=== PATIENT | male | born 1975 ===

== ENCOUNTER 2020-04-30 12:06 | Outpatient (REF) | payer OTHER, SELFPAY | END 2020-04-30 12:07 | disposition home or self-care (01) | LOC: HO.LAB 12:06 | PROVIDERS: Visit Provider Internal Medicine | DX: Z20.828 Contact with and (suspected) exposure to other viral communicable diseases (principal) | CPT/HCPCS: U0003 ==

== ENCOUNTER 2022-07-17 10:52 | Emergency (ER) | payer OTHER, SELFPAY ==
--- NOTE | ~2022-07-17 | XR_ITS ---
EXAMINATION: XR KNEE, LEFT CLINICAL INFORMATION: Left knee pain and swelling. COMPARISON: 11/01/2019 left knee radiographs. TECHNIQUE: Four views of the left knee. FINDINGS: Mild to moderate tricompartmental degenerative joint changes are seen most pronounced in the medial femoral-tibial and patellofemoral compartments. There is no acute fracture or dislocation. No significant joint effusion. Mild prepatellar soft tissue swelling. XR/XR knee LT 4V IMPRESSION: 1. Mild to moderate tricompartmental degenerative joint changes most consistent with osteoarthritis without significant change. 2. Mild prepatellar soft tissue swelling. Correlate with physical exam.
[2022-07-17 11:03] VITALS: BP 142/85; PULSE 65; RESP 20; TEMP 36.4; O2SAT 98; BMI 37.6
--- NOTE | 2022-07-17 12:36 | ED_ITS ---
HPI - Extremity Problem General Chief complaint: Extremity Problem Stated complaint: L knee pain Time Seen by Provider: 07/17/22 11:43 Source: patient Mode of arrival: ambulatory History of Present Illness HPI Narrative: 47-year-old male with no significant past medical history presenting to the ED complaining of acute on chronic left knee pain and swelling. Reports knee issues since prior surgery for meniscus about 6 years ago. Denies known injury, trauma, fall. Denies fever/chills MD Complaint: extremity pain and joint swelling Onset (ago): year(s) Related Data Previous Rx's Medication Instructions Recorded meloxicam 15 mg tablet 15 mg PO DAILY #30 tabs 06/04/20 lisinopril 20 mg tablet 20 mg PO DAILY #30 tabs 10/16/21 glipizide 5 mg tablet 5 mg PO QAM 30 days #30 tabs 05/21/22 pioglitazone 15 mg tablet (Actos) 15 mg PO DAILY 90 days #90 tabs 05/25/22 acetaminophen 500 mg tablet 500 mg PO Q6H PRN fever or pain 07/17/22 (Tylenol Extra Strength) #14 tabs naproxen 500 mg tablet 500 mg PO BID PRN pain 10 days #20 07/17/22 tabs Allergies Allergy/AdvReac Type Severity Reaction Status Date / Time metformin AdvReac Intermediate Abdominal Verified 05/21/22 08:56 Pain Review of Systems Review of Systems: Constitutional: No Fever, No Chills ENT/Mouth: No Ear Pain, No Nasal Congestion, No sore throat, No Rhinorrhea, No Swallowing Difficulty Cardiovascular: No Chest Pain, No SOB Respiratory: No Cough, No Sputum, No Wheezing Gastrointestinal: No Nausea, No Vomiting, No Diarrhea, No Constipation, No Abdominal pain Genitourinary: No Dysuria, No Urinary Frequency, No Flank Pain Musculoskeletal: + joint pain, No Myalgias, + Joint Swelling Skin: No Skin Lesions, No rash Neuro: No Weakness, No Numbness, No Paresthesias Yes all other systems are reviewed and are negative Constitutional: Constitutional: Reports as per [facility] Past Medical History Attestation statement: The following information was validated with the patient. Family History Family History Mother FH: HTN (hypertension) Father FH: HTN (hypertension) Social History Social History Housing: Apartment Alcohol intake: never Patient Tobacco Use Status: Never used Tobacco e-Cigarette/Vaping Use: Never Used Second Hand Smoke Exposure: No Advance Directives: No Advance Directives Information Provided: Yes service: No Current occupational status: employed Current occupation: [employer] Cognitive needs: No Hearing needs: No Vision needs: No Physical Exam Vital Signs: Vital Signs: Last Vital Signs Temp 97.5 F 07/17/22 11:03 Pulse 65 07/17/22 11:03 Resp 20 07/17/22 11:03 BP 142/85 H 07/17/22 11:03 Pulse Ox 98 07/17/22 11:03 O2 Del Method 07/17/22 11:03 BMI result Body Mass Index 37.6 Const: General: cooperative, healthy appearing and no acute distress Orientation/consciousness: patient oriented x3 Limitations: no limitations HEENT: Head: Yes normal to inspection and Yes atraumatic Ears: hearing grossly normal bilaterally General nose exam: Normal external nose present Face and sinus: Yes normal facial exam Eyes: General: appearance normal, both eyes and all related structures EOM: EOMs intact bilaterally Neck: Neck: Yes normal visual inspection and Yes no meningeal signs Resp: Effort & Inspection: normal respiratory effort and no respiratory distress Cardio: Rate: regular rate Skin: Rashes: no rashes Wounds: no wounds Neuro: General: patient oriented x3, tone normal and no meningeal signs Gait exam (Neuro): Normal gait present Extrem: Other: Left knee with mild suprapatellar swelling, diffuse tenderness to palpation. Slightly limited extension secondary to pain. Flexion intact. NV intact distally. Course Course Course Narrative: XR knee LT 4V IMPRESSION: 1.? Mild to moderate tricompartmental degenerative joint changes most consistent with osteoarthritis without significant change. 2.? Mild prepatellar soft tissue swelling. Correlate with physical exam. >> BEKA wrap applied for stability/comfort Medical Decision Making Medical Decision Making MDM Narrative: 47-year-old male with no significant past medical history presenting to the ED complaining of acute on chronic left knee pain and swelling. On exam vital signs stable, NAD, nontoxic appearing, physical exam as noted above. Concern for osteoarthritis vs effusion vs tendon/ligamental injury. No evidence of cellulitis, low suspicion for septic/arthritis. Plan: X-rays ordered in triage Please refer to course for remaining clinical decision making, interpretation of labs/imaging results, and discussions with consultants and/or family members. Differential Diagnosis Differential Diagnoses: The differential diagnosis associated with the presentation includes As above Radiology Impression Discussion of test interpretation with radiology: I have reviewed the radiologist's reading. Prescription Management I considered prescription management with: Pain Medication Discharge Plan Discharge Clinical Impression: Osteoarthritis, Prepatellar effusion of left knee Patient Disposition: Home, Self-Care Instructions: Osteoarthritis (ED) Additional Instructions: Your x-ray shows osteoarthritis and swelling. Ice and elevate. Wear Beka wrap for comfort, stability, and compression Please follow-up with her doctor and Orthopedics Naproxen as an anti-inflammatory / pain medication, take with food In addition take Tylenol at home Prescriptions: New acetaminophen [Tylenol Extra Strength] 500 mg tablet 500 mg PO Q6H PRN (Reason: fever or pain) Qty: 14 0RF naproxen 500 mg tablet 500 mg PO BID PRN (Reason: pain) 10 Days Qty: 20 0RF No Action meloxicam 15 mg tablet 15 mg PO DAILY Qty: 30 2RF pioglitazone [Actos] 15 mg tablet 15 mg PO DAILY 90 Days Qty: 90 1RF lisinopril 20 mg tablet 20 mg PO DAILY Qty: 30 3RF glipizide 5 mg tablet 5 mg PO QAM 30 Days Qty: 30 3RF Referrals: [facility] [facility] [Provider Group] Yoshi Armendariz PA-C [Primary Care Provider] - Stand Alone Forms: Work/School Release Discharge Date/Time: 07/17/22 12:52
== END 2022-07-17 12:52 | disposition home or self-care (01) ==
PROVIDERS: Emergency Provider Emergency Medicine; PCP Physician Assistant
DX: M17.12 Unilateral primary osteoarthritis, left knee (principal); M25.462 Effusion, left knee; M25.562 Pain in left knee
CPT/HCPCS: 73564; 99282; 99283

== ENCOUNTER 2023-08-19 08:17 | Emergency (ER) | payer OTHER, SELFPAY ==
--- NOTE | ~2023-08-19 | CT_ITS ---
EXAMINATION: CT HEAD W/O IV CONTRAST CT CERVICAL SPINE W/O IV CONTRAST CLINICAL INFORMATION: Neck pain, blurry vision. COMPARISON: None TECHNIQUE: Head - Contiguous axial imaging of the head was performed from the skull base to the vertex without the administration of intravenous contrast, and axial images are reconstructed at 2 mm and 5 mm slice thickness. Cervical spine - A volumetric, helical CT acquisition of the cervical spine was obtained without contrast; in addition to the standard set of axial images, multiplanar reformatted images were provided in the coronal and sagittal imaging planes. This CT examination was performed using dose optimization techniques as appropriate, variously including the following: *Automated exposure control *Adjustment of mA and/or kV according to patient size (this includes techniques or standardized protocols for targeted exams where dose is matched to indication/reason for exam; i.e. extremities or head) *Use of iterative reconstruction technique DLP: 1539 mGy-cm (total) FINDINGS: HEAD: No acute intracranial findings. Lyman to white matter differentiation is preserved. No evidence of intracranial hemorrhage, major vascular territory infarction, focal mass effect or midline shift. The ventricles have normal size and configuration. No hydrocephalus or extra-axial fluid collections. The calvarium is intact and the visualized paranasal sinuses, mastoid air cells and middle ear cavities are clear. The temporomandibular joints are intact. The orbits and globes are unremarkable. Incidentally noted is probably fat attenuation of both parotid glands (i.e., parotid liposubstitution; fatty degeneration). CERVICAL SPINE: There is lack of lordotic curvature of the cervical spine. The craniocervical junction is normal. The occipital condyles, dens and atlantodental articulation are intact. The vertebral body heights and alignment are maintained. No fractures in the anterior or posterior elements. No prevertebral soft tissue edema or soft tissue hematoma. Small vertebral osteophytes noted at multiple levels. Mild narrowing of disc spaces at C6-C7 and C7-T1. There is no significant narrowing of the central spinal canal. There is mild bilateral neural foraminal stenosis at C6-C7. Thyroid gland is normal. The examined lung apices are clear. Incidentally noted is fatty replacement of both submandibular glands. The visualized lymph nodes in the subinsular regions are at upper range of normal size. CT/CT cervical spine wo IV con IMPRESSION: * No intracranial hemorrhage or other acute intracranial pathology. * No fracture or malalignment in the cervical spine. * There is mild spondylosis of the cervical spine. * Incidentally noted is fatty replacement/degeneration of bilateral submandibular and parotid glands.
[2023-08-19 08:24] VITALS: BP 148/99; PULSE 83; RESP 17; TEMP 37.1; O2SAT 99; BMI 37.8
--- NOTE | 2023-08-19 08:35 | ED_ITS ---
HPI - General Adult General Chief complaint: Headache Stated complaint: neck pain headache Time Seen by Provider: 08/19/23 08:34 Source: patient Mode of arrival: ambulatory Limitations: no limitations History of Present Illness HPI narrative: Patient is a 48 year old assigned male at , with a history of DM II, HTN, and sleep apnea presenting to the ED for a 1 week history of headaches. Patient reports he feels a the pain in the back of his head and it radiates to his neck. Patient endorses intermittent lightheadedness, dizziness, sensitivity to light, sensitivity to loud noises, blurry vision, and nausea. Patient has taken ibuprofen and tylenol to help alleviate the pain, providing mild relief. Denies fever/chills, weakness, fatigue, a hx of head trauma/LOC, SOB, chest pain, and abdominal pain. No sick contacts, recent travel, nor recent ABX use. MD complaint: Headache Onset (ago): week(s) (1) Location: head and neck Radiation: neck Severity: mild Severity scale (1-10): 3 Quality: aching, dull and constant Pain Consistency: constant Relieving factors: medication Exacerbating factors: other (bright lights and loud sounds) Associated symptoms: nausea/vomiting Treatments prior to arrival: NSAID and other (tylenol) Related Data Previous Rx's Medication Instructions Recorded meloxicam 15 mg tablet 15 mg PO DAILY #30 tabs 06/04/20 glipizide 5 mg tablet 5 mg PO QAM 30 days #30 tabs 05/21/22 acetaminophen 500 mg tablet 500 mg PO Q6H PRN fever or pain 07/17/22 (Tylenol Extra Strength) #14 tabs naproxen 500 mg tablet 500 mg PO BID PRN pain 10 days #20 07/17/22 tabs pioglitazone 15 mg tablet (Actos) 15 mg PO DAILY 90 days #90 tabs 01/01/23 lisinopril 20 mg tablet 20 mg PO DAILY #90 tabs 02/25/23 Allergies Allergy/AdvReac Type Severity Reaction Status Date / Time metformin AdvReac Intermediate Abdominal Verified 08/19/23 08:24 Pain Review of Systems 2 Constitutional: Constitutional: Reports no additional constitutional complaints, Denies chills, Denies fever(s), Reports headache(s) and Denies night sweats Eyes: Eyes: Reports no additional eye complaints, Denies diplopia, Denies eye discharge, Denies loss of vision and Denies eye pain ENT: Reports headache(s) Cardiovascular: Cardiovascular: Reports no additional cardiovascular complaints, Denies chest pain, Denies Loss of Consciousness and Denies dyspnea Respiratory: Respiratory: Reports no additional respiratory complaints and Denies dyspnea Gastrointestinal: Gastrointestinal: Reports no additional gastrointestinal complaints, Denies abdominal pain, Denies melena, Denies hematochezia, Denies change in bowel habits and Denies change in stool character Genitourinary: Genitourinary: Reports no additional male genitourinary complaints, Denies hematuria, Denies oliguria, Denies difficulty urinating, Denies dysuria, Denies urinary frequency, Denies urinary hesitancy, Denies urinary incontinence and Denies urinary urgency Musculoskeletal: Musculoskeletal: Reports no additional musculoskeletal complaints, Denies numbness and Denies tingling Neurologic: Denies Abnormal speech present, Reports headache(s), Denies loss of vision, Denies numbness and Denies tingling Psychiatric: Psychiatric: Reports no additional psychiatric complaints Endocrine: Endocrine: Reports no additional endocrine complaints Hematologic/Lymphatic: Hematologic/Lymphatic: Reports no additional hematologic/lymphatic complaints Allergic/Immunologic: Allergic/Immunologic: Reports no additional allergic/immunologic complaints PMFSH Past Medical History Attestation statement: The following information was validated with the patient. Source: old records reviewed and nursing notes reviewed Medical History Sleep apnea Diabetes Hypertension Family History Family History Mother FH: HTN (hypertension) Father FH: HTN (hypertension) Social History Social History Housing: Apartment Alcohol intake: never Patient Tobacco Use Status: Never used Tobacco e-Cigarette/Vaping Use: Never Used Second Hand Smoke Exposure: No Advance Directives: No service: No Current occupational status: employed Current occupation: [employer] Cognitive needs: No Hearing needs: No Vision needs: No Physical Exam ED Vital Signs: Vital Signs - 24 hr 08/19/23 08:24 08/19/23 09:27 08/19/23 12:32 Temperature 98.7 F 98.0 F 98.3 F Pulse Rate 83 64 76 Respiratory Rate 17 18 18 Blood Pressure 148/99 H 128/85 131/68 Pulse Oximetry 99 96 98 Oxygen Delivery Method Room Air Room Air Room Air BMI result Body Mass Index 37.8 Const General: cooperative, no acute distress, alert and awake Nutritional Appearance: obese Orientation/consciousness: patient oriented x3 Limitations: no limitations HENMT Head: Yes normal to inspection, Yes normocephalic and No scalp tenderness Ears: hearing grossly normal bilaterally General nose exam: Normal external nose present Face and sinus: Yes normal facial exam Mouth: Normal oral and palatal mucosa present, no drooling and no muffled voice Eyes General: appearance normal, both eyes and all related structures Periorbital: periorbital findings normal Eyelids: Yes eyelids normal Conjunctivae: conjunctivae normal Pupils: Equal, round and reactive pupils present EOM: EOMs intact bilaterally Neck Neck: Yes normal visual inspection, No no meningeal signs, Yes supple, No lymphadenopathy and No tender Chest Chest palpation & inspection: normal inspection of the chest Resp Effort & Inspection: normal respiratory effort and able to speak in complete sentences Auscultation: clear to auscultation bilaterally Cardio Jugular venous distension: no JVD Palpation: normal PMI Rate: regular rate Rhythm: regular rhythm GI Inspection: Yes normal to inspection Neuro General: patient oriented x3 and No no meningeal signs Cranial nerves: Yes CN's II-XII intact bilaterally and Yes Equal, round and reactive pupils present Cognition (Neuro): normal cognition Speech: No Abnormal speech present Motor exam (neuro): 5/5 motor strength present throughout, Pronator motor function not present, no tremor noted, no asterixis and Motor fasciculations not present Sensory Exam: Normal double simultaneous stimulation for sensation Coordination: [id number] test normal Extrem General: Yes normal to inspection, Yes full ROM and Yes capillary refill normal Psych Appearance: grossly normal Mental Status: mental status grossly normal Affect: normal affect Attitude: cooperative Thought process: Normal thought process present Thought content: Normal thought content present Insight: Good insight present (Psych) NIH Stroke Scale Level of Consciousness: Alert Visual: No visual loss Facial Palsy: Normal Motor Arm (Right): No drift Motor Arm (Left): No drift Motor Leg (Right): No drift Motor Leg (Left): No drift Sensory: Normal Best Language: No aphasia Dysarthia: Normal Medications Administered Discontinued Medications Generic Name Dose Route Start Last Admin Trade Name Freq PRN Reason Stop Dose Admin Cyclobenzaprine HCl 5 mg 08/19/23 10:49 08/19/23 11:00 Cyclobenzaprine Hcl 5 Mg Tablet PO 08/19/23 10:50 5 mg ONCE ONE Administration Sodium Chloride 1,000 mls @ 999 mls/hr 08/19/23 11:30 08/19/23 11:22 Ns IV 08/19/23 12:30 999 mls/hr .Q1H1M ANAMARIA Administration Medical Decision Making Medical Decision Making [facility] Narrative: Patient is a 48 year old assigned male at with a history of DM presenting to the emergency department today with a headache. Patient's physical exam was unremarkable. Patient's blood work showed an elevated blood sugar of 413 but was otherwise unremarkable. Patient's EKG was unremarkable. Patient's CT head and c- spine showed no acute process. I explained my physical exam findings as well as all test results to the patient. I answered all questions asked by the patient. Patient received IV fluids and flexeril which he stated helped his symptoms significantly. I stressed the importance of the patient taking his medication as prescribed. I stressed the importance of the patient following up with his primary care provider. I stressed the importance of the patient returning to the emergency department immediately if his symptoms were to worsen or if he were to develop any dizziness, shortness of breath, difficulty breathing, chest pain, blurry vision, loss of vision, nausea, vomiting, abdominal pain, fever, chills, back pain, or any other complaints. Patient verbalized agreement and understanding with this treatment plan and discharge. Differential Diagnosis Differential Diagnoses: The differential diagnosis associated with the presentation includes Headache Hyperglycemia Migraine Admission/Observation Consideration of admission/observation: Escalation of care including admission/observation considered Patient would have been admitted to the hospital had his work up had any findings where hospital admission was appropriate and his clinical presentation warranted hospital admission. Lab Data [facility] Lab Attestation statement: I reviewed the patient's lab results. My interpretation of these results are in the [facility] Rationale portion of this note. 08/19/23 09:19 08/19/23 09:19 Labs: Lab Results 08/19/23 Range/Units 09:19 WBC 6.6 (4.8-10.8) X10*3/uL RBC 5.24 (4.60-5.80) X10*6/uL Hgb 13.5 L (14.0-18.0) g/dl Hct 40.4 L (42.0-52.0) % MCV 77.1 L (80.0-98.0) fL MCH 25.8 L (27.0-33.0) pg MCHC 33.4 (31.0-36.0) g/dl RDW 12.8 (11.0-16.0) % Plt Count 200 (160-400) X10*3/uL MPV 10.4 (9.4-12.4) fL Immature Gran % (Auto) 0.3 (0.0-0.4) % Neut % (Auto) 68.6 (45-73) % Lymph % (Auto) 21.5 (20-40) % Mcdonald % (Auto) 6.2 (2-11) % Eos % (Auto) 2.9 (0-4) % Baso % (Auto) 0.5 (0-2) % Lymph # (Auto) 1.4 (1.2-4.9) X10*3/uL Mcdonald # (Auto) 0.4 (0.1-1.2) X10*3/uL Eos # (Auto) 0.2 (0.0-0.4) X10*3/uL Baso # (Auto) 0.0 (0.0-0.2) X10*3/uL Abs Immat Gran (auto) 0.02 (0.00-0.03) X10*3/uL Absolute Neuts (auto) 4.5 (2.0-8.3) x10*3/uL Absolute Nucleated RBC 0.000 (0.0-0.012) X10*3/uL Nucleated RBC % (auto) 0.0 (0.0-0.2) /100WBC Sodium 137 (135-145) mmol/L Potassium 4.1 (3.3-5.1) mmol/L Chloride 100 (96-108) mmol/L Carbon Dioxide 27 (22-29) mmol/L Anion Gap 14 (12-20) BUN 14 (9-16) mg/dL Creatinine 1.03 (0.5-1.4) mg/dL Estim Creat Clear Calc 114.5 Estimated GFR > 60 Random Glucose 413 H* (60-115) mg/dL Calcium 9.5 (8.4-10.2) mg/dL Magnesium 2.0 (1.6-2.6) mg/dL Total Bilirubin 0.4 (0.0-1.0) mg/dL AST 22 (5-37) U/L ALT 34 (0-40) U/L Alkaline Phosphatase 81 (39-117) U/L Troponin I High Sens < 2.7 (<3.5-35.0) ng/L Total Protein 8.2 H (6.5-8.0) g/dL Albumin 4.2 (3.5-5.0) g/dL Influenza Type A (PCR) NEGATIVE (Negative) Influenza Type B (PCR) NEGATIVE (Negative) RSV RNA Qual (PCR) NEGATIVE (Negative) SARS-CoV-2 RNA (RT-PCR) NEGATIVE (Negative) Independent Interpretation I performed an independent interpretation of an: EKG and CT Scan Interpretation: My interpretation is in agreement with the radiologist's impression of these imaging studies. - EXAMINATION: CT HEAD W/O IV CONTRAST CT CERVICAL SPINE W/O IV CONTRAST CLINICAL INFORMATION: Neck pain, blurry vision. COMPARISON: None TECHNIQUE: Head - Contiguous axial imaging of the head was performed from the skull base to the vertex without the administration of intravenous contrast, and axial images are reconstructed at 2 mm and 5 mm slice thickness. Cervical spine - A volumetric, helical CT acquisition of the cervical spine was obtained without contrast; in addition to the standard set of axial images, multiplanar reformatted images were provided in the coronal and sagittal imaging planes. This CT examination was performed using dose optimization techniques as appropriate, variously including the following: *Automated exposure control *Adjustment of mA and/or kV according to patient size (this includes techniques or standardized protocols for targeted exams where dose is matched to indication/reason for exam; i.e. extremities or head) *Use of iterative reconstruction technique DLP: 1539 mGy-cm (total) FINDINGS: HEAD: No acute intracranial findings. Lyman to white matter differentiation is preserved. No evidence of intracranial hemorrhage, major vascular territory infarction, focal mass effect or midline shift. The ventricles have normal size and configuration. No hydrocephalus or extra-axial fluid collections. The calvarium is intact and the visualized paranasal sinuses, mastoid air cells and middle ear cavities are clear. The temporomandibular joints are intact. The orbits and globes are unremarkable. Incidentally noted is probably fat attenuation of both parotid glands (i.e., parotid liposubstitution; fatty degeneration). CERVICAL SPINE: There is lack of lordotic curvature of the cervical spine. The craniocervical junction is normal. The occipital condyles, dens and atlantodental articulation are intact. The vertebral body heights and alignment are maintained. No fractures in the anterior or posterior elements. No prevertebral soft tissue edema or soft tissue hematoma. Small vertebral osteophytes noted at multiple levels. Mild narrowing of disc spaces at C6-C7 and C7-T1. There is no significant narrowing of the central spinal canal. There is mild bilateral neural foraminal stenosis at C6-C7. Thyroid gland is normal. The examined lung apices are clear. Incidentally noted is fatty replacement of both submandibular glands. The visualized lymph nodes in the subinsular regions are at upper range of normal size. CT/CT head/brain wo IV con IMPRESSION: * No intracranial hemorrhage or other acute intracranial pathology. * No fracture or malalignment in the cervical spine. * There is mild spondylosis of the cervical spine. * Incidentally noted is fatty replacement/degeneration of bilateral submandibular and parotid glands. Dictated By: Pool Huffman MD Signed By: Electronically signed by Pool Huffman MD 08/19/23 1059 - Vent. Rate: 068 BPM Atrial Rate: 068 BPM P-R Int: 144 ms QRS Dur: 090 ms QT Int: 384 ms P-R-T Axes: 043 -27 016 degrees QTc Int: 408 ms Normal sinus rhythm Minimal voltage criteria for LVH, may be normal variant (R in aVL) Borderline ECG No previous ECGs available DD/ 0916 Radiology Impression Discussion of test interpretation with radiology: I have reviewed the radiologist's reading. Chronic Conditions Patient?s care impacted by: Diabetes Discharge Plan Discharge Clinical Impression: Type 2 diabetes mellitus, Headache Patient Disposition: Home, Self-Care Instructions: Acute Headache (DC), Diabetes and Nutrition (ED) Additional Instructions: Follow up with your primary care provider and an it specialist. Return to the emergency department immediately if your symptoms worsen or if you develop any dizziness, shortness of breath, difficulty breathing, chest pain, blurry vision, loss of vision, nausea, vomiting, abdominal pain, fever, chills, back pain, or any other complaints. Prescriptions: No Action meloxicam 15 mg tablet 15 mg PO DAILY Qty: 30 2RF pioglitazone [Actos] 15 mg tablet 15 mg PO DAILY 90 Days Qty: 90 1RF lisinopril 20 mg tablet 20 mg PO DAILY Qty: 90 1RF acetaminophen [Tylenol Extra Strength] 500 mg tablet 500 mg PO Q6H PRN (Reason: fever or pain) Qty: 14 0RF naproxen 500 mg tablet 500 mg PO BID PRN (Reason: pain) 10 Days Qty: 20 0RF glipizide 5 mg tablet 5 mg PO QAM 30 Days Qty: 30 3RF Referrals: Yoshi Armendariz PA-C [Primary Care Provider] - Real Garcia [Physician] - (Call to establish and follow up with an it specialist. ) Stand Alone Forms: Work/School Release Interventions: ED Discharge Assessment Last Done: 08/19/23 12:32 Discharge Date/Time: 08/19/23 12:33 Print Language: Wolof
--- NOTE | 2023-08-19 08:58 | ECG_ITS ---
Test Reason : blurry vision Blood Pressure : / mmHG Vent. Rate : 068 BPM Atrial Rate : 068 BPM P-R Int : 144 ms QRS Dur : 090 ms QT Int : 384 ms P-R-T Axes : 043 -27 016 degrees QTc Int : 408 ms Normal sinus rhythm Minimal voltage criteria for LVH, may be normal variant ( R in aVL ) Borderline ECG No previous ECGs available Referred By: Letty Guillen Electronically Signed By:TAVON ARCE
[2023-08-19 09:23] LABS: MANUAL DIFF FLAG NO
--- NOTE | 2023-08-19 09:24 | PC.NURSE ---
patient a&ox3, c/o posterior headache 12/07 pain, pt states hes had on/off blurry vision, neuros currently intact, vss, iv inserted, labs drawn, swab obtained, call mtz within reach, will continue to monitor
[2023-08-19 09:27] VITALS: BP 128/85; PULSE 64; RESP 18; TEMP 36.7; O2SAT 96
[2023-08-19 09:29] LABS: Basophils Percent Auto 0.5 % (0-2); Eosinophils Absolute Auto 0.2 X10*3/uL (0.0-0.4); Eosinophils Percent Auto 2.9 % (0-4); Hematocrit 40.4 % (42.0-52.0); Hemoglobin 13.5 g/dl (14.0-18.0); Imm Gran Abs Auto 0.02 X10*3/uL (0.00-0.03); Imm Gran Pct Auto 0.3 % (0.0-0.4); Lymphocytes Absolute Auto 1.4 X10*3/uL (1.2-4.9); Lymphocytes Percent Auto 21.5 % (20-40); Mean Corpuscular HGB Conc 33.4 g/dl (31.0-36.0); Mean Corpuscular Hemoglobin 25.8 pg (27.0-33.0); Mean Corpuscular Volume 77.1 fL (80.0-98.0); Mean Platelet Volume 10.4 fL (9.4-12.4); Monocytes Absolute Auto 0.4 X10*3/uL (0.1-1.2); Monocytes Percent Auto 6.2 % (2-11); Neutrophils Absolute Auto 4.5 x10*3/uL (2.0-8.3); Neutrophils Percent Auto 68.6 % (45-73); Platelet Count 200 X10*3/uL (160-400); Red Blood Count 5.24 X10*6/uL (4.60-5.80); Red Cell Distribution Width 12.8 % (11.0-16.0); White Blood Count 6.6 X10*3/uL (4.8-10.8)
[2023-08-19 09:48] LABS: Alanine Aminotransferase 34 U/L (0-40); Albumin Level 4.2 g/dL (3.5-5.0); Alkaline Phosphatase 81 U/L (39-117); Anion Gap 14 (12-20); Aspartate Amino Transferase 22 U/L (5-37); Bilirubin Total 0.4 mg/dL (0.0-1.0); Blood Urea Nitrogen 14 mg/dL (9-16); Calcium 9.5 mg/dL (8.4-10.2); Carbon Dioxide 27 mmol/L (22-29); Chloride 100 mmol/L (96-108); Creatinine Clr Calc Pharmacy 114.5; Estimated Glomerular Filt Rate > 60; Potassium 4.1 mmol/L (3.3-5.1); Sodium 137 mmol/L (135-145); Total Protein 8.2 g/dL (6.5-8.0)
[2023-08-19 09:54] LABS: Troponin-I High Sensitivity < 2.7 ng/L (<3.5-35.0)
[2023-08-19 10:06] LABS: Influenza A PCR NEGATIVE (Negative); Influenza B PCR NEGATIVE (Negative); Resp Syncy Virus RNA Qual PCR NEGATIVE (Negative); SARS COV2 PCR INHOUSE NEGATIVE (Negative)
[2023-08-19 10:08] LABS: Glucose Random 413 mg/dL (60-115)
[2023-08-19] MEDS: Cyclobenzaprine HCl 5 MG TABLET PO (11:00)
--- NOTE | 2023-08-19 11:00 | PC.NURSE ---
pt medicated per order
[2023-08-19] MEDS: 0.9 % Sodium Chloride 1,000 ML 999 ML IV (11:22)
[2023-08-19 12:32] VITALS: BP 131/68; PULSE 76; RESP 18; TEMP 36.8; O2SAT 98
== END 2023-08-19 12:33 | disposition home or self-care (01) ==
PROVIDERS: Physician Assistant Medical; Emergency Provider Emergency Medicine; PCP Physician Assistant
DX: M54.2 Cervicalgia (principal); R51.9 Headache, unspecified; E11.9 Type 2 diabetes mellitus without complications; H53.8 Other visual disturbances; R94.31 Abnormal electrocardiogram [ECG] [EKG]; Z11.52 Encounter for screening for COVID-19; Z20.822 Contact with and (suspected) exposure to COVID-19; Z79.899 Other long term (current) drug therapy
CPT/HCPCS: 0241U; 36415; 70450; 72125; 80053; 83735; 84484; 85025; 93005; 99284; 99285

== ENCOUNTER → 2023-08-19 08:58 | Outpatient (BNV) | payer OTHER, SELFPAY | PROVIDERS: Emergency Provider Emergency Medicine; PCP Physician Assistant; Visit Provider Internal Medicine | DX: H53.19 Other subjective visual disturbances (principal) | CPT/HCPCS: 93010 ==

== ENCOUNTER 2024-05-30 07:42 | Outpatient (AMB) | payer OTHER, SELFPAY ==
[2024-05-30 07:49] VITALS: BP 122/84; PULSE 83; O2SAT 97; BMI 37.4
--- NOTE | 2024-05-30 07:49 | A.OFFPC_ITS ---
Vital Signs 05/30/24 07:49 Height 5 ft 11 in Weight 268 lb 6 oz BMI 37.4 BP 122/84 Blood Pressure Location Lt brachial Position Sitting Pulse 83 Pulse Source Pulse Oximeter Pulse Oximetry (%) 97 Oxygen Delivery Method Room Air Intake Visit Reasons: Annual PE- needs PHQ-9/THRIVE+ A1C Allergies metformin Adverse Reaction (Intermediate, Verified 05/30/24 07:59) Abdominal Pain Medication List - Last Reconciled 05/30/24 by Yoshi Armendariz PA-C acetaminophen (Tylenol Extra Strength) 500 mg PO Q6H PRN glipizide 5 mg PO QAM 30 days lisinopril 20 mg PO DAILY meloxicam 15 mg PO DAILY naproxen 500 mg PO BID PRN 10 days pioglitazone (Actos) 15 mg PO DAILY 90 days Tobacco use date assessed: 05/30/24 Dental Screening Dental Screen Date: 05/30/24 Did you have a dental visit in the last 12 months?: No Did you have a dental problem in the last 6 months where you did not have access to dental care?: No Was dental information given to patient?: Patient has dentist HPI Annual PE- needs PHQ-9/THRIVE+ A1C HPI Details Patient is a 48-year-old male here today for annual physical. Patient's past medical history significant for obesity, type 2 diabetes, hypertension .. DMII: Today's A1c at 12.3. He reports he has not been using glipizide 5 mg daily. Was previously on glipizide though discontinue with its use. Also was previously on metformin though had GI side effects and stopped using this medication. He does admit to some polydipsia and polyuria. PLAN: Will reintroduce metformin a 1000 b.i.d. along with his Actos 15 mg. He will try to implement a diabetic diet. .. HTN: Patient's blood pressure acceptable today in office. He continues the use lisinopril 20 mg. Vaccines up-to-date with COVID vaccine, tetanus vaccine, [facility] Sleep apnea Diabetes Hypertension Family History Mother FH: HTN (hypertension) Father FH: HTN (hypertension) Social History (Updated 05/30/24 @ 08:04 by Yoshi Armendariz PA-C) Housing: Apartment Alcohol intake: never Patient Tobacco Use Status: Never used Tobacco e-Cigarette/Vaping Use: Never Used Second Hand Smoke Exposure: No service: No Current occupational status: employed Current occupation: [employer] program in [place] [employer] Cognitive needs: No Hearing needs: No Vision needs: No Questionnaire PHQ-9 Over the last 2 weeks, how often have you been bothered by any of the following problems? 1. Little interest or pleasure in doing things: not at all 2. Feeling down, depressed, or hopeless: not at all 3. Trouble falling or staying asleep, or sleeping too much: not at all 4. Feeling tired or having little energy: not at all 5. Poor appetite or overeating: not at all 6. Feeling bad about yourself - or that you are a failure or have let yourself or your family down: not at all 7. Trouble concentrating on things, such as reading the newspaper or watching television: not at all 8. Moving or speaking so slowly that other people could have noticed. Or the opposite - being so fidgety or restless that you have been moving around a lot more than usual: not at all 9. Thoughts that you would be better off or of hurting yourself in some way: not at all Total score: 0 Depression Screening Interpretation: Negative Depression Screening Done: Yes 40364 - PHQ-9 Billing: Yes Source: Developed by Drs. Julius Rebolledo, Felicia Peralta, Yogi Amaro and colleagues, with an educational kristel from [employer]. Thrive Questionnaire Date Thrive assessed: 05/30/24 I am a: Patient What is your living situation today?: I have a steady place to live Within the past 12 months, did the food you bought not last and you didn't have the money to get more?: Never true Within the past 12 months, did you worry whether your food would run out before you got money to buy more?: Sometimes True Do you have trouble paying for medicines?: No Do you have trouble getting transportation to medical appointments?: No Do you have trouble paying your heating and electricity bill?: No Do you have trouble taking care of your child, family member or friend?: No Do you have trouble with day-to-day activities such as bathing, preparing meals, shopping, managing finances, etc.?: No Are you currently unemployed and looking for a job?: No Are you interested in more education?: No Please select the resources that you would like help with: None Currently or been in a relationship where the following occur: No concerns reported THRIVE Score: 1 AUDIT C Alcohol Use Questionnaire (AUDIT-C) 1. How often do you have a drink containing alcohol?: Never 3. How often do you have six or more drinks on one occasion?: Never Total Score: 0 TERRIE-7 AMB Questionnaire TERRIE-7 Date TERRIE - 7 assessed: 05/30/24 Feeling nervous, anxious, or on edge: 0 = Not at all Not being able to stop or control worryin = Several days Worrying too much about different things: 1 = Several days Trouble relaxin = Not at all Being so restless that it is hard to sit still: 0 = Not at all Becoming easily annoyed or irritable: 1 = Several days Feeling afraid as if something awful might happen: 0 = Not at all Total TERRIE-7 score (0-4 normal; 5-9 mild; 10-14 moderate; 15-21 severe): 3 Source: Developed by Drs. Julius Rebolledo, Felicia Peralta, Yogi Amaro and colleagues, with an educational kristel from [employer]. TERRIE-7 Assessment Billing TERRIE-7 Assessment Tool: TERRIE-7 Assessment 61233 Review of Systems Const Denies body aches, Denies chills, Denies excessive sweating, Denies fatigue, Denies fever(s) and Denies headache(s) Eyes Denies blurry vision ENT Denies dysphagia, Denies vertigo, Denies dizziness, Denies headache(s), Denies hearing loss and Denies tinnitus Card Denies chest pain, Denies chest pain with activity, Denies syncope, Denies irregular heart rhythm and Denies dyspnea Resp Denies chest congestion, Denies cough, Denies hemoptysis, Denies dyspnea and Denies wheezing GI Denies abdominal pain, Denies melena, Denies hematochezia, Denies coffee ground emesis, Denies dysphagia, Denies diarrhea, Denies nausea and Denies vomiting Denies difficulty urinating, Denies dysuria, Denies urinary frequency, Denies urinary hesitancy and Denies urinary urgency Musc Denies arthralgias, Denies limited range of motion, Denies muscle cramps and Denies muscle weakness Skin/Breast Denies rash and Denies skin ulcer Neuro Denies Abnormal speech present, Denies confusion, Denies vertigo, Denies dizziness, Denies syncope, Denies headache(s), Denies memory loss and Denies seizure-like activity Psych Denies anxiety, Denies confusion, Denies depression, Denies memory loss, Denies panic attacks and Denies paranoia Endo Denies excessive sweating, Denies fatigue, Denies flushing, Denies polydipsia and Denies polyuria Aller/Immun Denies wheezing Physical exam (Primary Care) Vital Signs: Last Vital Signs Pulse 83 05/30/24 07:49 BP 122/84 05/30/24 07:49 Pulse Ox 97 05/30/24 07:49 Oxygen Delivery Method Room Air 05/30/24 07:49 BMI result Body Mass Index 37.4 Tobacco/Smoking Status: Tobacco use Status Tobacco use date assessed 05/30/24 05/30/24 07:56 Patient Tobacco Use Status Never used Tobacco 05/30/24 07:56 e-Cigarette/Vaping Use Never Used 05/30/24 07:56 PHQ-9: PHQ-9 Score PHQ-9: Total score 0 05/30/24 07:56 Depression Screening Interpretation: Negative Thrive Assessment: Date of Thrive Assessment Date Thrive assessed 05/30/24 05/30/24 07:56 Currently or been in a relationship where the following occur: No concerns reported Const General: cooperative, comfortable, no acute distress, alert and awake; No confusion Orientation/consciousness: oriented to person, oriented to place, patient oriented x3 and No confusion HENMT Head: Yes normocephalic Ears: external ears normal and TM's normal bilaterally Face and sinus: No sinus tenderness Mouth: Normal oral and palatal mucosa present and tongue normal Teeth and gingiva: dentition normal and gingiva normal Throat: Yes posterior oropharynx normal, Yes tonsils normal and Yes uvula midline Eyes Conjunctivae: conjunctivae normal Sclerae: sclerae normal Pupils: Equal, round and reactive pupils present EOM: EOMs intact bilaterally Direct Ophthalmoscopy: No no photophobia Neck Neck: Yes no lymphadenopathy, No tender and Yes no JVD Thyroid: Thyroid normal Carotids: no bruits Chest Chest palpation & inspection: no tenderness Resp Effort & Inspection: normal respiratory effort, no audible wheezes, not labored and no stridor Auscultation: no crackles, no rales, no rhonchi and no wheezes Cardio Jugular venous distension: no JVD Rate: regular rate, not bradycardic and not tachycardic Rhythm: regular rhythm Bruits: no carotid bruits Peripheral pulses: Peripheral pulses 2+ throughout GI Inspection: Yes normal to inspection, No abdominal wall ecchymosis and No visible herniation Palpation (GI): Soft to palpation, nontender, no guarding, not rigid and No hepa tosplenomegaly present Auscultation: normoactive bowel sounds General: Yes no CVA tenderness Back/Spine/Pelvis Back: no CVA tenderness and No back tenderness Cervical Spine: cervical ROM normal Thoracic/Lumbar Spine: thoracic and lumbar spine normal to inspection, straight leg raise negative bilaterally, No thoraco-lumbar ROM limited and No lumbar spinal tenderness Skin Lesions: no lesions Rashes: no rashes Wounds: no wounds Neuro General: oriented to person, oriented to place, patient oriented x3, CN's II-XI intact bilaterally and No confusion Cranial nerves: Yes Equal, round and reactive pupils present and Yes Normal accommodation reflex present Cognition (Neuro): normal cognition Speech: No Abnormal speech present Gait exam (Neuro): Normal gait present Motor exam (neuro): 5/5 motor strength present throughout Extrem Right upper extremity: full ROM; no cyanosis Left upper extremity: full ROM; no cyanosis Right lower extremity: no edema Left lower extremity: no edema Psych Appearance: grossly normal Mental Status: mental status grossly normal Affect: normal affect Attitude: cooperative Thought process: Normal thought process present Results AMB Hemoglobin A1c AMB Hemoglobin A1c 12.3 % Last Edit by Monisha Cutler CMA on 05/30/24 08:02 Coding Level of Care Code Est Pt Prev Care 40-64y([id number]) Diagnoses Annual physical exam Z00.00 Primary hypertension I10 Hypertension type: primary hypertension Type 2 diabetes mellitus with hyperglycemia, without long-term current use of insulin E11.65 Diabetes mellitus extermination supervisor insulin use: without [facility] use Diabetes mellitus complication status: with hyperglycemia Colon cancer screening Z12.11 Class 2 obesity E66.812 Additional Codes TERRIE-7 Assessment Billing - TERRIE-7 Assessment Tool: TERRIE-7 Assessment [id number] ([id number]) PHQ-9 - 80706 - PHQ-9 Billing: Yes ([id number]) Assessment & Plan Assessment & Plan (1) Annual physical exam: Code(s): Z00.00 - Encounter for general adult medical examination without abnormal findings Category: Medical Plan: As per HPI (2) HTN (hypertension): Code(s): I10 - Essential (primary) hypertension Category: Medical Qualifiers: Hypertension type: primary hypertension Qualified Code(s): I10 - Essential (primary) hypertension Plan: Patient's blood pressure acceptable today in office. Will continue his current dose of lisinopril with goal blood pressure to remain below 140/90 (3) Type 2 diabetes mellitus: Code(s): E11.9 - Type 2 diabetes mellitus without complications Category: Medical Qualifiers: Diabetes mellitus [facility] insulin use: without [facility] use Diabetes mellitus complication status: with hyperglycemia Qualified Code(s): E11.65 - Type 2 diabetes mellitus with hyperglycemia Plan: Patient's type 2 diabetes suboptimally controlled with today A1c above 12. He does report some polydipsia and polyuria. He was on glipizide and Actos past though has stopped using these medications. He was on metformin though had GI side effects though is now willing to restart metformin along with Actos for better glycemic control. We did discuss the probable need of starting insulin and patient does understand. He would like to work on lifestyle and dietary modifications along with oral antihyperglycemic medications for the next 3 months to see if we can get his A1c down. Goal A1c is to be below 7.0. (4) Colon cancer screening: Code(s): Z12.11 - Encounter for screening for malignant neoplasm of colon Category: Medical Plan: Willing to do Cologuard (5) Class 2 obesity: Code(s): E66.812 - Obesity, class 2 Category: Medical Plan: Patient does understand his BMI is over 35 and will work on being more physically active and trying to adapt to better eating habits to reduce his weight. Orders: Orders AMB Hemoglobin A1c Today Z13.9 - Encounter for screening, unspecified Microalbumin, Random (w Creat) Today E11.9 - Type 2 diabetes mellitus without complications Comprehensive [place]. Panel Fast Today I10 - Essential (primary) hypertension Complete Blood Count no Diff Today I10 - Essential (primary) hypertension Prostate Specific Antigen Scr Today I10 - Essential (primary) hypertension, Z12.5 - Encounter for screening for malignant neoplasm of prostate Lipid Panel Today E11.9 - Type 2 diabetes mellitus without complications Referrals Cologuard Test Z12.11 - Encounter for screening for malignant neoplasm of colon Medications: New blood sugar diagnostic (FreeStyle Lite Strips) As directed 100 ea 3RF E11.9 - Type 2 diabetes mellitus without complications blood-glucose meter (FreeStyle Lite Meter kit) As directed 1 ea 0RF E11.9 - Type 2 diabetes mellitus without complications lancets (FreeStyle Lancets) As directed 100 ea 3RF E11.9 - Type 2 diabetes mellitus without complications metformin 1,000 mg PO BID 90 days 180 tabs 3RF E11.9 - Type 2 diabetes mellitus without complications Refilled pioglitazone (Actos) 15 mg PO DAILY 90 days 90 tabs 1RF E11.65 - Type 2 diabetes mellitus with hyperglycemia
== END 2024-05-30 08:23 | disposition home or self-care (01) ==
LOC: HO.HMCH 07:42
PROVIDERS: PCP Physician Assistant; Visit Provider Physician Assistant
DX: Z00.00 Encounter for general adult medical examination without abnormal findings (principal); E11.65 Type 2 diabetes mellitus with hyperglycemia; E66.812 Obesity, class 2; Z68.37 Body mass index [BMI] 37.0-37.9, adult; I10 Essential (primary) hypertension; Z12.11 Encounter for screening for malignant neoplasm of colon

== ENCOUNTER 2025-03-06 10:02 | Outpatient (AMB) | payer OTHER, SELFPAY ==
--- NOTE | 2025-03-06 10:33 | MHC.PC.OV ---
Vital Signs 03/06/25 10:35 Height 5 ft 11 in Weight 253 lb 2 oz BMI 35.3 BP 122/76 Blood Pressure Location Lt brachial Position Sitting Pulse 85 Pulse Source Pulse Oximeter Temp 97.1 F Temp Source Temporal Artery Scan Pulse Oximetry (%) 98 Oxygen Delivery Method Room Air Intake Visit Reasons: dm Intake Note: Patient is here to follow up on DM. Manager Office Services Required: No Edging Machine Catcher: Not Required per policy Accompanied by: Self / Same As Patient Allergies metformin Adverse Reaction (Intermediate, Verified 03/06/25 10:48) Abdominal Pain Medication List - Last Reconciled 03/06/25 by Yoshi Armendariz PA-C acetaminophen (Tylenol Extra Strength) 500 mg PO Q6H PRN blood sugar diagnostic (FreeStyle Lite Strips) As directed blood-glucose meter (FreeStyle Lite Meter kit) As directed lancets (FreeStyle Lancets) As directed lisinopril 20 mg PO DAILY meloxicam 15 mg PO DAILY metformin 1,000 mg PO BID 90 days naproxen 500 mg PO BID PRN 10 days pioglitazone (Actos) 15 mg PO DAILY 90 days Tobacco use date assessed: 03/06/25 Dental Screening Dental Screen Date: 03/06/25 Did you have a dental visit in the last 12 months?: No Did you have a dental problem in the last 6 months where you did not have access to dental care?: No Was dental information given to patient?: No HPI dm HPI Details Patient is a 49-year-old male here today for a follow-up visit Patient's past medical history significant for obesity, type 2 diabetes, hypertension UNFORTUNATELY WAS NOT ABLE TO DO FASTING LABS BEFORE TODAY'S VISIT .. DMII: Patient's type 2 diabetes has been uncontrolled. Today's A1c at 11 Has lost weight since last office visit. Continues with the use of Actos and metformin a 1000 b.i.d. He does admit to some polydipsia and polyuria. PLAN: Will add on GLP 1 to help with glycemic control. .. HTN: Patient's blood pressure acceptable today in office. He continues the use lisinopril 20 mg. [facility] Medical History (Updated 03/06/25 @ 10:57 by Yoshi Armendariz PA-C) Sleep apnea Diabetes Hypertension Surgical History No pertinent past surgical history Family History Mother FH: HTN (hypertension) Father FH: HTN (hypertension) Social History Housing: Apartment Alcohol intake: never Patient Tobacco Use Status: Never used Tobacco e-Cigarette/Vaping Use: Never Used Second Hand Smoke Exposure: No service: No Current occupational status: employed Current occupation: [employer] program in [place] Cognitive needs: No Hearing needs: No Vision needs: No Questionnaire PHQ-9 Over the last 2 weeks, how often have you been bothered by any of the following problems? 1. Little interest or pleasure in doing things: several days 2. Feeling down, depressed, or hopeless: not at all 3. Trouble falling or staying asleep, or sleeping too much: not at all 4. Feeling tired or having little energy: several days 5. Poor appetite or overeating: not at all 6. Feeling bad about yourself - or that you are a failure or have let yourself or your family down: not at all 7. Trouble concentrating on things, such as reading the newspaper or watching television: several days 8. Moving or speaking so slowly that other people could have noticed. Or the opposite - being so fidgety or restless that you have been moving around a lot more than usual: not at all 9. Thoughts that you would be better off or of hurting yourself in some way: not at all Total score: 3 Depression Screening Interpretation: Positive Depression Screening Follow-up: Existing condition and Declines treatment Depression Screening Done: Yes 22932 - PHQ-9 Billing: Yes Source: Developed by Drs. Julius Rebolledo, Felicia Peralta, Yogi Amaro and colleagues, with an educational kristel from [employer]. Thrive Questionnaire Date Thrive assessed: 02/27/25 I am a: Patient What is your living situation today?: I have a steady place to live Within the past 12 months, did the food you bought not last and you didn't have the money to get more?: Never true Within the past 12 months, did you worry whether your food would run out before you got money to buy more?: Never true Do you have trouble paying for medicines?: No Do you have trouble getting transportation to medical appointments?: No Do you have trouble paying your heating and electricity bill?: No Do you have trouble taking care of your child, family member or friend?: No Do you have trouble with day-to-day activities such as bathing, preparing meals, shopping, managing finances, etc.?: No Are you currently unemployed and looking for a job?: No Are you interested in more education?: No Please select the resources that you would like help with: None Currently or been in a relationship where the following occur: No concerns reported THRIVE Score: 0 AUDIT C Alcohol Use Questionnaire (AUDIT-C) 1. How often do you have a drink containing alcohol?: Never Total Score: 0 TERRIE-7 AMB Questionnaire TERRIE-7 Date TERRIE - 7 assessed: 03/06/25 Feeling nervous, anxious, or on edge: 0 = Not at all Not being able to stop or control worryin = Several days Worrying too much about different things: 0 = Not at all Trouble relaxin = Several days Being so restless that it is hard to sit still: 0 = Not at all Becoming easily annoyed or irritable: 1 = Several days Feeling afraid as if something awful might happen: 0 = Not at all Total TERRIE-7 score (0-4 normal; 5-9 mild; 10-14 moderate; 15-21 severe): 3 Source: Developed by Drs. Julius Rebolledo, Felicia Peralta, Yogi Amaro and colleagues, with an educational kristel from [employer]. TERRIE-7 Assessment Billing TERRIE-7 Assessment Tool: TERRIE-7 Assessment 35353 Review of Systems Const Denies headache(s) Eyes Denies loss of vision ENT Denies vertigo, Denies dizziness, Denies headache(s) and Denies sore throat Card Denies chest pain, Denies leg edema and Denies lightheadedness Resp Denies cough, Denies hemoptysis and Denies wheezing GI Denies abdominal pain, Denies melena, Denies constipation, Denies diarrhea and Denies vomiting Denies dysuria, Denies urinary frequency and Denies urinary urgency Musc Denies arthralgias, Denies joint swelling, Denies numbness and Denies tingling Neuro Denies Abnormal speech present, Denies behavioral changes, Denies vertigo, Denies dizziness, Denies headache(s), Denies loss of vision, Denies memory loss, Denies numbness and Denies tingling Psych Denies anxiety, Denies behavioral changes, Denies depression, Denies memory loss and Denies panic attacks Rick/Lymph Denies easy bleeding and Denies easy bruising Aller/Immun Denies wheezing Physical exam (Primary Care) Vital Signs: Last Vital Signs Temp 97.1 F 03/06/25 10:35 Pulse 85 03/06/25 10:35 BP 122/76 03/06/25 10:35 Pulse Ox 98 03/06/25 10:35 Oxygen Delivery Method Room Air 03/06/25 10:35 BMI result Body Mass Index 35.3 BMI Assessment/Plan discussion: High BMI High, discussed plan: lifestyle, weight reduction, dietary and physical activity Tobacco/Smoking Status: Tobacco use Status Tobacco use date assessed 03/06/25 03/06/25 10:42 Patient Tobacco Use Status Never used Tobacco 03/06/25 10:42 e-Cigarette/Vaping Use Never Used 03/06/25 10:42 PHQ-9: PHQ-9 Score PHQ-9: Total score 3 03/06/25 10:49 Depression Screening Interpretation: Positive Depression Screening Follow-up: Existing condition and Declines treatment Thrive Assessment: Date of Thrive Assessment Date Thrive assessed 02/27/25 03/06/25 10:42 Currently or been in a relationship where the following occur: No concerns reported Const Other: Obese General: healthy appearing, no acute distress, alert and awake Nutritional Appearance: well nourished Orientation/consciousness: oriented to person, oriented to place and oriented to time HENMT Ears: TM's normal bilaterally General nose exam: Normal nasal mucous membranes and turbinates present Eyes Conjunctivae: conjunctivae normal Sclerae: sclerae normal Pupils: Equal, round and reactive pupils present Neck Neck: Yes no lymphadenopathy and Yes no JVD Thyroid: Thyroid normal Carotids: no bruits Resp Effort & Inspection: normal respiratory effort and not tachypneic Auscultation: no crackles, no rales, no rhonchi and no wheezes Cardio Rate: regular rate Rhythm: regular rhythm Heart sounds: no murmurs and normal S1 and S2 GI Palpation (GI): Soft to palpation, nontender, no hepatomegaly and no splenomegaly Auscultation: normal bowel sounds Skin General skin exam: no rashes or lesions noted and dry skin Neuro General: oriented to person, oriented to place and oriented to time Cranial nerves: Yes Equal, round and reactive pupils present Speech: No Abnormal speech present Gait exam (Neuro): Normal gait present Motor exam (neuro): no tremor noted Extrem Right upper extremity: full ROM Left upper extremity: full ROM Right lower extremity: full ROM; no edema Left lower extremity: full ROM; no edema Psych Mental Status: mental status grossly normal Speech and movement: Normal speech and movement present Affect: normal affect Attitude: cooperative Thought process: Normal thought process present Results AMB Hemoglobin A1c AMB Hemoglobin A1c 11.6 % Last Edit by MOISES Garcia on 03/06/25 10:47 Results Reviewed Results Reviewed: Laboratory Last Values Hgb A1c (Clinic) 11.6 % (4.0-6.0) H 03/06/25 10:33 Coding Level of Care Code Est Pt Level 4 (15868) Diagnoses Primary hypertension I10 Hypertension type: primary hypertension Type 2 diabetes mellitus with hyperglycemia, without long-term current use of insulin E11.65 Diabetes mellitus complication status: with hyperglycemia Diabetes mellitus terminal gauger supervisor insulin use: without terminal gauger supervisor use Class 2 obesity E66.812 DIAMOND (obstructive sleep apnea) G47.33 Erectile dysfunction due to diseases classified elsewhere N52.1 Erectile dysfunction type: due to other secondary cause Additional Codes PHQ-9 - 12261 - PHQ-9 Billing: Yes ([id number]) TERRIE-7 Assessment Billing - TERRIE-7 Assessment Tool: TERRIE-7 Assessment 31786 ([id number]) Assessment & Plan Assessment & Plan (1) HTN (hypertension): Code(s): I10 - Essential (primary) hypertension Category: Medical Qualifiers: Hypertension type: primary hypertension Qualified Code(s): I10 - Essential (primary) hypertension Plan: Patient's blood pressure acceptable today in office. Will continue his current dose of lisinopril with goal blood pressure to remain below 140/90 (2) Type 2 diabetes mellitus: Code(s): E11.9 - Type 2 diabetes mellitus without complications Category: Medical Qualifiers: Diabetes mellitus complication status: with hyperglycemia Diabetes mellitus skilled nursing insulin use: without skilled nursing use Qualified Code(s): E11.65 - Type 2 diabetes mellitus with hyperglycemia Plan: Patient's type 2 diabetes suboptimally controlled with today A1c above 11. He does report some polydipsia and polyuria. He continues with pioglitazone 15 and a metformin 1000 b.i.d. Will add GLP 1 to help with glycemic control and reducing weight. Goal A1c is to be below 7.0 (3) Class 2 obesity: Code(s): E66.812 - Obesity, class 2 Category: Medical Plan: Patient does understand his BMI is over 35 and will work on being more physically active and trying to adapt to better eating habits to reduce his weight. (4) DIAMOND (obstructive sleep apnea): Code(s): G47.33 - Obstructive sleep apnea (adult) (pediatric) Category: Medical Plan: Patient does have a history of obstructive sleep apnea. Does use his CPAP machine has been using over the last 5 years. He is interested in getting a new machine though do not have any recent sleep study reports. He is willing to do a new home sleep study (5) Erectile dysfunction: Code(s): N52.9 - Male erectile dysfunction, unspecified Category: Medical Qualifiers: Erectile dysfunction type: due to other secondary cause Qualified Code(s): N52.1 - Erectile dysfunction due to diseases classified elsewhere Plan: Patient does report having issues with his erectile dysfunction. Will trial viagra prior to sexual activity Orders: Orders AMB Hemoglobin A1c Today E11.65 - Type 2 diabetes mellitus with hyperglycemia RT home sleep study Today G47.33 - Obstructive sleep apnea (adult) (pediatric) Referrals Ophthalmology Referral E11.65 - Type 2 diabetes mellitus with hyperglycemia Urology Referral N52.1 - Erectile dysfunction due to diseases classified elsewhere Medications: New tirzepatide (Mounjaro) for 4 weeks 2.5 mg (0.5 mL) subcut QWEEK 2 mL 0RF 4 weeks E11.65 - Type 2 diabetes mellitus with hyperglycemia sildenafil (Viagra) administer 30 minutes to 4 hours before activity 100 mg PO DAILY PRN 7 tabs 0RF sexual activity 7 days N52.1 - Erectile dysfunction due to diseases classified elsewhere Refilled metformin 1,000 mg PO BID 180 tabs 3RF 90 days E11.9 - Type 2 diabetes mellitus without complications pioglitazone (Actos) 15 mg PO DAILY 90 tabs 1RF 90 days E11.65 - Type 2 diabetes mellitus with hyperglycemia lisinopril 20 mg PO DAILY 90 tabs 2RF I10 - Essential (primary) hypertension Patient Instructions: Goal: A1c to be below 7.0, blood pressure to remain below 140/90 Barriers: Adherence to physical activity and healthy eating habits
[2025-03-06 10:35] VITALS: BP 122/76; PULSE 85; TEMP 36.2; O2SAT 98; BMI 35.3
--- OUTSIDE RECORDS SUMMARY | 2025-03-06 11:47 | XMS_ITS | Clinical Summary ---
Author Organization [employer] Address [address] [place] [address] Care Team Providers Care Food Preparer Name Role Phone Unavailable Primary Care Provider Unavailabl e Allergies No known active allergies Medications lisinopril 10 MG tablet Take 1 tablet by mouth at bed time. Active naproxen (Naprosyn) 500 MG tablet TAKE 1 TABLET TWICE A DAY NEEDED FOR PAIN FOR 10 DAYS 07/17/2022 Active glipiZIDE (Glucotrol) 5 MG tablet Take 5 mg by mouth in the morning. 09/30/2022 Active Social History Tobacco Use Types Packs/Day Years Used Date Smoking Tobacco: Never Assessed Sex and Gender Information Value Date Recorded Sex Assigned at Male 03/30/2022 10:32 AM EDT Legal Sex Male 10:32 AM EDT Gender Identity Male 03/30/2022 10:32 AM EDT Sexual Orientation Straight 03/30/2022 10 :32 AM EDT Plan of Treatment Health Maintenance Due Date Last Done Comments CT Colonography 1973 Colonoscopy 1973 Colorectal Cancer Screening 1973 Dental Oral Exam 1973 Dental Prophylaxis 1973 Dental X-Ray: Full Mouth 1973 Depression Screening 1973 FIT DNA/Cologuard 1973 FIT 1973 FOBT 1973 HIV Screening 1973 Lipid Panel 1973 SDOH Screening 1973 Sigmoidoscopy 1973 Disability Screening 1973 Alcohol/Substance Use Screening 1985 Tobacco Screening 1985 Family Planning (PISQ) 1988 Hepatitis C Screening 1991 DTaP/Tdap/Td Vaccines (1 - Tdap) 1992 Hepatitis B Vaccines (1 of 3 - 19+ 3-dose series) 1992 Dental X-Ray: Bitewings 07/12/2022 07/11/2021 Pneumococcal Vaccine: 50+ Ye ars (1 of 1 - PCV) 2023 Zoster Vaccines (1 of 2) 2023 COVID-19 Vaccine (1 - 2023-2 5 season) 2025 Influenza Vaccine (#1) 2025 RSV Patients and Pa tients Aged 60 years or older (1 - 1-dose 75+ series) 2048 HIB Vaccines Aged Out No longer eligi ble based on patient's age to complete this topic HPV Vaccines Aged Out No longer eligi ble based on patient's age to complete this topic Hepatitis A Vaccines Aged Out No long er eligible based on patient's age to complete this topic IPV Vaccines Aged Out No longer eligi ble based on patient's age to complete this topic Meningococcal B Vaccine Aged Out No l onger eligible based on patient's age to complete this topic Meningococcal Vaccine Aged Out No justo víctor eligible based on patient's age to complete this topic RSV under 20 months Aged Out No longe r eligible based on patient's age to complete this topic Rotavirus Vaccines Aged Out No longer eligible based on patient's age to complete this topic Procedures Procedure Name Priority Date/Time Associated Diagnosis Comments BITEWING - SINGLE RADIOGRAPHIC IMAGE Routine 07/11/2021 12:00 AM EST from Last 3 Months or Most Recently Relevant to Health Maintenance Insurance [facility] MEDICAID STAND ADULT
== END 2025-03-06 11:05 | disposition home or self-care (01) ==
LOC: HO.HMCH 10:03
PROVIDERS: PCP Physician Assistant; Visit Provider Physician Assistant
DX: I10 Essential (primary) hypertension (principal); E11.65 Type 2 diabetes mellitus with hyperglycemia; E66.812 Obesity, class 2; Z68.35 Body mass index [BMI] 35.0-35.9, adult; G47.33 Obstructive sleep apnea (adult) (pediatric); N52.1 Erectile dysfunction due to diseases classified elsewhere

== ENCOUNTER → 2025-03-06 10:02 | Outpatient (BNVA) | payer OTHER, SELFPAY | PROVIDERS: PCP Physician Assistant; Visit Provider Physician Assistant | DX: I10 Essential (primary) hypertension (principal); E66.9 Obesity, unspecified; E11.65 Type 2 diabetes mellitus with hyperglycemia; E66.812 Obesity, class 2; G47.33 Obstructive sleep apnea (adult) (pediatric); N52.1 Erectile dysfunction due to diseases classified elsewhere; Z79.84 Long term (current) use of oral hypoglycemic drugs; Z68.35 Body mass index [BMI] 35.0-35.9, adult | CPT/HCPCS: 83036; 96127; 99212 ==